=== PATIENT | male | born 1970 | race Caucasian/White ===

== ENCOUNTER → 2018-06-17 | Outpatient (CLI) | payer BC ==
--- NOTE | 2018-06-17 10:59 | RAD ---
History: Left flank mass for 5 years, increasing in size and your ago. Comparison: None. Findings: Ultrasound imaging was performed of the left flank in area of interest. Within the subcutaneous soft tissues, there is an intermediate echoic, well-circumscribed mass which measures 4.1 x 8.5 x 2.9 cm. This has echogenicity similar to a subcutaneous fat. There are areas of mild vascularity within. Impression: Palpable lesion corresponds to a fat-containing mass measuring 4.1 x 8.5 x 2.9 cm. 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 Given clinical increase in size as well as appearance vascularity, surgical excision is recommended. Electronically signed by: Ashu Huang MD (06/17/2018 10:56 AM) [facility]
== END | disposition home or self-care (01) ==
LOC: US 07:41
PROVIDERS: ATTEND Physician Assistant Medical
DX: R19.09 Other intra-abdominal and pelvic swelling, mass and lump (principal)
CPT/HCPCS: 76705

== ENCOUNTER 2018-08-28 09:42 | Emergency (ER) | payer BC ==
[~2018-08-28] VITALS: Ht 177.8 cm; Wt 108.0 kg
--- NOTE | 2018-08-28 10:24 | RAD ---
Examination: 3 views of the right wrist HISTORY: History of wrist pain COMPARISON: None available FINDINGS: There is widening of the scapholunate interval measuring up to 5 mm in transverse dimension with some proximal migration of the capitate. The alignment of the carpometacarpal joint grossly appears unremarkable.There is a small subtle bony density extending from the hamate bone medially. IMPRESSION: 1. Widened appearance of the scapholunate interval with some proximal migration of the capitate, underlying scapholunate pathology or injury with SLAC wrist is not excluded. MRI follow-up can be considered. 2. Small subtle bony density extending from the hamate bone medially, uncertain etiology, a small avulsion bone fragment is not excluded. Electronically signed by: Preston Mesa MD (08/28/2018 10:20 AM) [id number]
[2018-08-28] MEDS ORDERED: HYDROcodone/APAP 5/325MG 1 TAB TABLET PO ONE (10:30)
[2018-08-28 10:35] VITALS: BP 134/77
[2018-08-28] MEDS ORDERED: HYDR-3165 PO (10:37)
[2018-08-28] MEDS ORDERED: METH4TAB2 PO (10:37)
[2018-08-28] MEDS ORDERED: IBUP800T19 PO (10:37)
--- NOTE | 2018-08-28 10:38 | PHYS DOC ---
Past History Past Medical History: Other Past Surgical History: Other Alcohol Use: Occasionally Drug Use: None Adult General Chief Complaint Chief Complaint: WRIST PAIN HPI HPI Patient is a 48 year old right-handed male who presents with obtaining of right wrist pain for the last 3 days. Patient states he had nontraumatic right wrist pain for the last 2 days that getting worse with movement. Patient complaining of edema of his hand without neurovascular deficit, fever and chills. Patient states he had a fall a few weeks ago and was hammering frequently one week ago. Review of Systems Review of Systems Constitutional: Denies fever or chills [] Eyes: Denies change in visual acuity, redness, or eye pain [] HENT: Denies nasal congestion or sore throat [] Respiratory: Denies cough or shortness of breath [] Cardiovascular: No additional information not addressed in HPI [] GI: Denies abdominal pain, nausea, vomiting, bloody stools or diarrhea [] : Denies dysuria or hematuria [] Musculoskeletal: Denies back pain , reports joint pain [] Integument: Denies rash or skin lesions [] Neurologic: Denies headache, focal weakness or sensory changes [] Endocrine: Denies polyuria or polydipsia [] All other systems were reviewed and found to be within normal limits, except as documented in this note. Current Medications Current Medications Current Medications Medications (Trade) Dose Ordered Sig/Melody Start Time Stop Time Status Last Admin Dose Admin Acetaminophen/ Hydrocodone Bitart (Lortab 5/325) 1 tab 1X ONCE 08/28/18 10:30 08/28/18 10:31 08/28/18 10:19 1 TAB Allergies Allergies Allergies Coded Allergies Type Severity Reaction Last Updated Verified No Known Drug Allergies 08/28/18 No Physical Exam Physical Exam Constitutional: Well developed, well nourished, mild acute distress, non-toxic appearance. [] HENT: Normocephalic, atraumatic Eyes: PERRLA, EOMI, conjunctiva normal, no discharge. [] Neck: Normal range of motion, no tenderness, supple, no stridor. [] Cardiovascular:Heart rate regular rhythm, no murmur [] Lungs & Thorax: Bilateral breath sounds clear to auscultation [] Skin: Warm, dry, no erythema, no rash. [] Back: No tenderness, no CVA tenderness. [] Extremities: Right released with edema and tenderness in the radial side with hand edema no cyanosis, no clubbing, ROM painful. Neurologic: Alert and oriented X 3, normal motor function, normal sensory function, no focal deficits noted. [] Psychologic: Affect normal, judgement normal, mood normal. [] Current Patient Data Vital Signs Vital Signs Date Time Temp Pulse Resp B/P (MAP) Pulse Ox O2 Delivery O2 Flow Rate FiO2 08/28/18 10:19 16 Room Air 08/28/18 09:50 97.8 87 97 EKG EKG [] Radiology/Procedures Radiology/Procedures [address] [id number] IMAGING REPORT Signed PATIENT: SHERRIE PALOMARES ACCOUNT: [id number] : 1970 LOCATION: ER AGE: 48 SEX: M EXAM STATUS: REG ER ORD. PHYSICIAN: SHAJI VU MD REASON: pain PROCEDURE: WRIST 3V RIGHT Examination: 3 views of the right wrist HISTORY: History of wrist pain COMPARISON: None available FINDINGS: There is widening of the scapholunate interval measuring up to 5 mm in transverse dimension with some proximal migration of the capitate. The alignment of the carpometacarpal joint grossly appears unremarkable.There is a small subtle bony density extending from the hamate bone medially. IMPRESSION: 1. Widened appearance of the scapholunate interval with some proximal migration of the capitate, underlying scapholunate pathology or injury with SLAC wrist is not excluded. MRI follow-up can be considered. 2. Small subtle bony density extending from the hamate bone medially, uncertain etiology, a small avulsion bone fragment is not excluded. Electronically signed by: Preston Mesa MD (08/28/2018 10:20 AM) [id number] DICTATED AND SIGNED BY: PRESTON MESA MD DATE: 08/28/18 1014 CC: SHAJI VU MD; RICKI QUIJANO ~ Course & Med Decision Making Course & Med Decision Making Pertinent Imaging studies reviewed. (See chart for details) Evaluation of patient in ER showed 48-year-old male patient with complaining of right wrist pain for the last 3 days and history of overusing his hand one week ago and a injury 4 weeks ago. X-ray showed hamate evulsion fracture and increase of joint space. Velcro wrist splint was applied and patient instructed to follow-up with material requisitioner orthopedic physician. Dodie Disclaimer Dragon Disclaimer This electronic medical record was generated, in whole or in part, using a voice recognition dictation system. Departure Departure: Impression: Primary Impression: Sprain of right wrist Additional Impressions: Fracture of hamate bone of right wrist Hand edema Disposition: HOME, SELF-CARE (at 1034) Condition: IMPROVED Referrals: RICKI QUIJANO (PCP) Patient Instructions: Avulsion Fracture, Hamate (Hook) Fracture-SportsMed, Wrist Sprain with Rehab-SportsMed Additional Instructions: Elevate right upper extremity and apply ice on the affected area Follow-up with your primary care physician in 3-5 days for possible MRI of right wrist Return to ER if not getting better Scripts Hydrocodone Bit/Acetaminophen (NORCO 5-325 TABLET) 1 Each Tablet 1 TAB PO PRN Q6HRS PRN for PAIN, #14 TAB 0 Refills Prov: SHAJI VU MD 08/28/18 Methylprednisolone (MEDROL) 4 Mg Tab.ds.pk 1 PKG PO UD for inflammation, #1 PKG Prov: SHAJI VU MD 08/28/18 Ibuprofen (IBUPROFEN) 800 Mg Tablet 1 TAB PO TID for pain, #30 TAB Prov: SHAJI VU MD 08/28/18 Problem Qualifiers SHAJI VU MD Aug 28, 2018 10:37
== END 2018-08-28 10:42 | disposition home or self-care (01) ==
LOC: ER 09:42
DX: S62.141A Displaced fracture of body of hamate [unciform] bone, right wrist, initial encounter for closed fracture (principal); X58.XXXA Exposure to other specified factors, initial encounter; Y93.89 Activity, other specified; Y92.89 Other specified places as the place of occurrence of the external cause; Y99.8 Other external cause status
CPT/HCPCS: 29125; 73110; 99283